=== PATIENT | female | born 1955 | race Caucasian/White ===

== ENCOUNTER 2018-07-12 18:40 | Emergency (ER) | payer MEDICAID ==
[~2018-07-12] VITALS: Ht 162.6 cm; Wt 45.4 kg
[2018-07-12 19:49] LABS: BASOPHIL % 0.2 % (0-2); PLATELET COUNT 287 x10^3mcL (130-400)
[2018-07-12 19:51] LABS: RED CELL DISTRIBUTION WIDTH 14.7 % (11.5-14.5)
[2018-07-12 20:42] LABS: CARBON DIOXIDE 31.9 mmol/L (21-32); CREATININE SERUM 2.6 mg/dL (0.6-1.0); POTASSIUM SERUM 3.7 mmol/L (3.5-5.1)
[2018-07-12 20:46] LABS: ALBUMIN 3.5 g/dL (3.4-5.0); BILIRUBIN TOTAL 0.2 mg/dL (0.20-1.00); PHOSPHOROUS 3.7 mg/dL (2.5-4.9)
[2018-07-12 20:48] LABS: TOTAL PROTEIN, SERUM 9.1 g/dL (6.4-8.2)
[2018-07-12 20:58] LABS: microscopic required? YES
[2018-07-12 21:02] LABS: UA SPECIFIC GRAVITY 1.015 (1.005-1.035); urine erythrocyte 3+ (NEGATIVE)
[2018-07-12 21:52] VITALS: BP 150/67
== END 2018-07-12 22:13 | disposition home or self-care (01) ==
LOC: ED 18:40
PROVIDERS: Emergency Medicine
DX: T82.898A Other specified complication of vascular prosthetic devices, implants and grafts, initial encounter (principal); R11.10 Vomiting, unspecified; R25.2 Cramp and spasm; N39.0 Urinary tract infection, site not specified; N18.6 End stage renal disease; Z99.2 Dependence on renal dialysis; Z88.0 Allergy status to penicillin; Z86.73 Personal history of transient ischemic attack (TIA), and cerebral infarction without residual deficits
CPT/HCPCS: 36415; J1956; Q0092

== ENCOUNTER 2019-06-20 18:46 | Emergency (ER) | payer BC ==
[~2019-06-20] VITALS: Ht 167.6 cm; Wt 45.4 kg
[2019-06-20 18:54] VITALS: Ht 167.6 cm; Wt 45.4 kg
[2019-06-20 21:45] VITALS: BP 157/54
== END 2019-06-20 21:45 | disposition home or self-care (01) ==
LOC: ED 18:46
DX: R05 Cough (principal); R09.89 Other specified symptoms and signs involving the circulatory and respiratory systems; R06.2 Wheezing; N18.6 End stage renal disease; Z88.0 Allergy status to penicillin; Z99.2 Dependence on renal dialysis; Z86.73 Personal history of transient ischemic attack (TIA), and cerebral infarction without residual deficits
CPT/HCPCS: 87804

== ENCOUNTER 2019-06-25 18:43 | Inpatient (IN) | payer BC ==
[~2019-06-25] VITALS: Ht 154.9 cm; Wt 39.6 kg
[2019-06-25 19:32] LABS: BASOPHIL % 0.1 % (0-2); PLATELET COUNT 155 x10^3mcL (130-400)
[2019-06-25 19:41] LABS: RED CELL DISTRIBUTION WIDTH 15.2 % (11.5-14.5)
[2019-06-25 19:45] LABS: BILIRUBIN TOTAL 0.9 mg/dL (0.20-1.00); CALCIUM 7.6 mg/dL (8.5-10.1); CARBON DIOXIDE 26.7 mmol/L (21-32); POTASSIUM SERUM 4.4 mmol/L (3.5-5.1)
[2019-06-25 19:47] LABS: TOTAL PROTEIN, SERUM 8.5 g/dL (6.4-8.2)
[2019-06-25] MEDS ORDERED: AURYXIA1 GM PO (21:04)
[2019-06-25] MEDS ORDERED: MUCUS D ER 6001 EACH PO (21:05)
[2019-06-25] MEDS ORDERED: NOR10 PO (21:05)
[2019-06-25] MEDS ORDERED: AZITHROMYCIN250 M1 PO (21:07)
[2019-06-25 22:22] LABS: MAGNESIUM 2.2 mg/dL (1.8-2.4)
[2019-06-25 22:24] LABS: CHOLESTEROL/HDL RATIO 5.1
[2019-06-25 22:31] LABS: FREE T4 1.25 ng/dL (0.76-1.46); FREE THYROXINE INDEX 2.5 ug/dL (1.4-4.5); T4(THYROXINE) 7.4 ug/dL (4.7-13.3)
[2019-06-26] VITALS (8 sets, daily range): BP systolic 121–176; BP diastolic 56–75; Ht 154.9 cm; Wt 39.6 kg
[2019-06-26 00:01] LABS: T3 TOTAL 0.46 ng/mL
[2019-06-26 05:13] LABS: BASOPHIL % 0.2 % (0-2)
[2019-06-26 05:20] LABS: PLATELET COUNT 105 x10^3mcL (130-400); RED CELL DISTRIBUTION WIDTH 15.5 % (11.5-14.5)
[2019-06-26 05:50] LABS: CALCIUM 7.3 mg/dL (8.5-10.1); CARBON DIOXIDE 25.2 mmol/L (21-32); PHOSPHOROUS 5.7 mg/dL (2.5-4.9); POTASSIUM SERUM 4.4 mmol/L (3.5-5.1)
[2019-06-26 05:59] LABS: CREATININE SERUM 5.3 mg/dL (0.6-1.0)
[2019-06-27 03:02] VITALS: BP 148/58
[2019-06-27 05:50] LABS: CALCIUM 9.2 mg/dL (8.5-10.1); CARBON DIOXIDE 29.6 mmol/L (21-32); CREATININE SERUM 2.7 mg/dL (0.6-1.0); MAGNESIUM 1.6 mg/dL (1.8-2.4); POTASSIUM SERUM 3.8 mmol/L (3.5-5.1)
[2019-06-27 06:02] LABS: BASOPHIL % 0 % (0-2); PLATELET COUNT 106 x10^3mcL (130-400)
[2019-06-27 07:27] VITALS: BP 125/60
[2019-06-27 09:45] VITALS: BP 130/54
[2019-06-27 12:33] VITALS: BP 135/79
[2019-06-27 17:09] VITALS: BP 140/65
[2019-06-27 20:11] VITALS: BP 139/64
[2019-06-28 06:08] VITALS: BP 106/54
[2019-06-28 06:19] LABS: BASOPHIL % 0.4 % (0-2)
[2019-06-28 06:32] LABS: CALCIUM 8.5 mg/dL (8.5-10.1); CARBON DIOXIDE 27.2 mmol/L (21-32); CREATININE SERUM 3.7 mg/dL (0.6-1.0); MAGNESIUM 1.8 mg/dL (1.8-2.4); PHOSPHOROUS 3.9 mg/dL (2.5-4.9); POTASSIUM SERUM 5.1 mmol/L (3.5-5.1)
[2019-06-28 07:19] LABS: RED CELL DISTRIBUTION WIDTH 15.8 % (11.5-14.5)
[2019-06-28 07:20] LABS: PLATELET COUNT 114 x10^3mcL (130-400)
[2019-06-28 07:42] VITALS: BP 113/56
[2019-06-28 12:30] VITALS: BP 107/55
[2019-06-28 16:40] VITALS: BP 137/65
[2019-06-28 22:10] VITALS: BP 132/66
[2019-06-29 05:48] VITALS: BP 144/76
[2019-06-29 06:24] LABS: BASOPHIL % 0.1 % (0-2)
[2019-06-29 06:26] LABS: CALCIUM 9.3 mg/dL (8.5-10.1); CARBON DIOXIDE 28.5 mmol/L (21-32); CREATININE SERUM 2.5 mg/dL (0.6-1.0); POTASSIUM SERUM 4.2 mmol/L (3.5-5.1)
[2019-06-29 06:38] LABS: PLATELET COUNT 114 x10^3mcL (130-400)
[2019-06-29] MEDS ORDERED: LEVOFLOXACIN500 M1 PO (09:47)
[2019-06-29] MEDS ORDERED: GLYCOPYRROLATE1 M1 PO (09:47)
[2019-06-29 12:44] VITALS: BP 172/85
== END 2019-06-29 13:11 | disposition home or self-care (01) | DRG 139 ==
LOC: ED 18:43 → IC 20:43 → MU 06-27 09:59 → DU 06-27 21:28
PROVIDERS: Emergency Medicine; Internal Medicine; ADMIT General Practice
DX: J18.9 Pneumonia, unspecified organism (principal); J96.01 Acute respiratory failure with hypoxia; G72.81 Critical illness myopathy; E43 Unspecified severe protein-calorie malnutrition; E11.22 Type 2 diabetes mellitus with diabetic chronic kidney disease; Q89.3 Situs inversus; I12.0 Hypertensive chronic kidney disease with stage 5 chronic kidney disease or end stage renal disease; E83.39 Other disorders of phosphorus metabolism; N18.6 End stage renal disease; E11.65 Type 2 diabetes mellitus with hyperglycemia; D63.1 Anemia in chronic kidney disease; E78.00 Pure hypercholesterolemia, unspecified; Z74.01 Bed confinement status; Z99.2 Dependence on renal dialysis; Z68.1 Body mass index [BMI] 19.9 or less, adult; Z79.84 Long term (current) use of oral hypoglycemic drugs; Z86.73 Personal history of transient ischemic attack (TIA), and cerebral infarction without residual deficits
CPT/HCPCS: 36600; 82962; 83880; 84439; 92526-GN; 92610-GN; G0378; J0692; J0885-EC; J1940; J1956; J3370; J3490; J7040; J7050; J7620; P9016; Q0092; Q0163